=== PATIENT | female | born 1945 | race Caucasian/White ===

== ENCOUNTER 2016-10-27 20:49 | Observation (INO) | payer MEDICARE, BC ==
[~2016-10-27] VITALS: Ht 162.6 cm; Wt 108.8 kg
--- NOTE | ~2016-10-27 | CO ---
ADMIT: 10/29/2016 RM/LOC: 530 [facility] MR#: [id number] [address] [address] SERINA MARQUEZ Gabriella [address] [place] [address] Consultation SEX: F AGE: 70 : 1945 CORRECTED: 11/03/2016 0758 NJV DATE OF CONSULTATION: 10/30/2016 ATTENDING PHYSICIAN: Lilian Grant MD CONSULTING PHYSICIAN: Drew Tariq MD ADDENDUM: Serina was seen in consultation independently. I have reviewed the chart, reviewed Randell Castrejon's note, and examined Serina. I am in agreement with his assessment, plan, and documentation. I have recommended proceeding with esophagogastroduodenoscopy. She accepts the risks with that and wishes to proceed. Drew Tariq MD/ lizzl JOB #: [id number] CC: Lilian Grant MD, Attending Physician Lilian Grant MD, Family Physician CORRECTED: 11/03/2016 0758 NJV
--- NOTE | 2016-10-28 01:07 | ER ---
ADMIT: 10/27/2016 RM/LOC: ER [facility] MR#: [id number] [address] [place], [place] [address] HEATHER MARQUEZ [address] [place] [address] Emergency Room Report SEX: F AGE: 70 : 1945 DATE: 10/27/2016 HISTORY OF PRESENT ILLNESS: Patient is a 70-year-old female with history of pancreatitis, spinal stenosis, colon cancer, status post hemicolectomy, left nephrectomy for renal cell carcinoma. States at noon, she developed epigastric pain radiating to back, consistent with her pancreatitis, nausea, but no vomiting. Loose stools, but no hematochezia, fevers, chills or urinary symptoms. PAST MEDICAL HISTORY: ILLNESSES: Type 2 diabetes, hypertension, pancreatitis, hyperlipidemia, colon cancer, gout, spinal stenosis, obstructive sleep apnea, renal cell carcinoma. OPERATIONS: Left nephrectomy for renal cell carcinoma, carpal tunnel release, partial colectomy for colon cancer, cholecystectomy. ALLERGIES: NONE. MEDICATIONS: Please see nurse's MAR. SOCIAL HISTORY: , retired, nonsmoker, nondrinker. No illicit drugs. FAMILY HISTORY: Negative per chart review. REVIEW OF SYSTEMS: A 12-point review of systems negative for all other systems, illnesses, or operations except as outlined above. PHYSICAL EXAMINATION: VITAL SIGNS: Temp 99.5, pulse 80, respirations 18, BP 150/70, SaO2 of 98% on room air. Weight 110 kilos. GENERAL: Anxious, non-diaphoretic. No evidence of jaundice, icterus, or diaphoresis. HEENT: Normocephalic. No evidence of epistaxis, rhinorrhea, or otorrhea. NECK: Supple without lymphadenopathy or thyromegaly. CHEST: Clear. Breath sounds equal. HEART: Regular rate and rhythm without murmur, gallop, or edema. ABDOMEN: Diffusely tender, particularly in the mid epigastrium without mass or megaly. Bowel sounds hypoactive. BACK: No CVA tenderness. Nontender dorsal spine to percussion. EXTREMITIES: No evidence of Homans sign, synovitis, or dermatitis. Homans sign negative. NEURO: EOMI. PERRLA. No evidence of drift, dysarthria, or ataxia. Gait not assessed. MENTAL STATUS: Alert, oriented, and cooperative without delusions, hallucinations, or abnormal thought content. MEDICAL DECISION MAKING: The patient received liter of fluid, Zofran, Dilaudid, Protonix with improvement of pain. CT abdomen and pelvis shows left nephrectomy, scattered air-fluid levels consistent with enteritis. Lactic 1.4. Normal CBC, procalcitonin 0.05. Potassium 3.2, creatinine 1.2, glucose 121, CRP 1.04, lipase 174, troponin less than 0.015. INR less than 1.0. BNP ADMIT: 10/27/2016 RM/LOC: ER [facility] MR#: [id number] [address] [place] [id number] [place] [address] Emergency Room Report SEX: F AGE: 70 : 1945 175. Urinalysis negative. EKG sinus rhythm without ST-T or Q-wave change. Discussed findings with Dr. Harding, who agreed to admit and gave orders to nursing staff. DIAGNOSIS: Abdominal pain, likely enteritis, but due to multiple comorbidities and social situation, we will admit observation status. RECOMMENDATION: Admit observation tele for Dr. Grant. ADMISSION/DISCHARGE CONDITION: Stable. Patient is a full code. Haim Brown MD/ damian JOB #: [id number] CC: Haim Brown MD, Attending Physician Lilian Grant MD, Family Physician Lilian Grant MD
--- NOTE | 2016-10-30 05:52 | HP ---
ADMIT: 10/28/2016 RM/LOC: 530 [facility] MR#: [id number] 26[address] [facility] [address] [place], [place] [address] HEATHER MARQUEZ [address] [place], [place] [address] History and Physical SEX: F AGE: 70 : 1945 DATE OF SERVICE: CHIEF COMPLAINT: Nausea, vomiting, and diarrhea. HISTORY OF PRESENT ILLNESS: Ms. Marquez is a 70-year-old female. She has a past medical history significant for history of colon cancer, status post hemicolectomy; history of renal cell carcinoma, status post left nephrectomy; history of pancreatitis; history of obstructive sleep apnea; hypertension; depression; diabetes as well as diastolic CHF who presented to the ER with complaints of nausea, vomiting, and diarrhea. Patient reports her symptoms started yesterday when she reports she had a salad for lunch and afterwards began having nausea, vomiting, and diarrhea. Reports she had mid abdominal pain that radiated through to her back and she was concerned that maybe it was pancreatitis. She reports that then she came into the ER, they did a full evaluation, did a CT scan and a lipase and found that she did not in fact have pancreatitis, it looked more like a gastroenteritis. However, patient was unable to keep the liquids down and was hypotensive and felt warranted admission for further evaluation and treatment. She reports otherwise she is not aware of any sick contacts. She notes that she did not really know if she had fevers or chills, but she did have kind of sweats. PAST MEDICAL HISTORY: Significant for: 1. History of colon cancer, status post hemicolectomy with negative nodes, recurrence at 1 year follow up, status post repeat hemicolectomy 07/2010. 2. Hyperlipidemia. 3. Osteopenia. 4. Status post carpal tunnel release in the right. 5. Renal cell carcinoma, status post left nephrectomy. 6. Diabetes mellitus. 7. Depression. 8. Hypertension. 9. Obstructive sleep apnea with a CPAP at 10. 10.History of pancreatitis. 11.History of vitamin D deficiency. 12.History of lap cholecystectomy. 13.She has history of lumbar stenosis status post L4-L5 laminectomy. ALLERGIES: LISTED NO KNOWN MEDICAL ALLERGIES. MEDICATIONS: Currently are: 1. Norvasc 5 mg p.o. daily. 2. Cymbalta 60 mg p.o. daily. 3. Benazepril 10 mg p.o. daily. 4. Tradjenta 5 mg p.o. daily. 5. Hydrochlorothiazide 25 mg p.o. daily. 6. Lasix 40 mg p.o. daily. 7. Potassium 30 mEq p.o. daily. 8. Vitamin D 2000 units daily. 9. Trulicity on Saturdays. ADMIT: 10/28/2016 RM/LOC: 530 [facility] MR#: [id number] [address] [id number] HEATHER MARQUEZ [address] [place] [address] History and Physical SEX: F AGE: 70 : 1945 SOCIAL HISTORY: She quit smoking in March 2010. She denies any alcohol use. She is . FAMILY HISTORY: Father of unknown causes. Mother of a CVA. She has a brother with Paget's and melanoma and another sister with lung cancer. Another sister with coronary disease. REVIEW OF SYSTEMS: Obtained, was otherwise essentially negative. PHYSICAL EXAMINATION: GENERAL: She is alert and oriented. She is in no apparent distress. HEENT: Pupils are equal, round, reactive. Oropharynx, dry mucous membranes. NECK: Supple. HEART: Distant but normal rate with a regular rhythm. LUNGS: Have diminished breath sounds secondary to body habitus. ABDOMEN: Soft. She does have pain in her mid epigastrium to palpation, but there is no guarding or rebound. Her bowel sounds are completely normal. She seems a little distended. EXTREMITIES: Have no evidence of edema. SKIN: Warm and dry. NEUROLOGIC: She moves her upper and lower extremities. ASSESSMENT/PLAN: 1. Nausea, vomiting, and diarrhea. 2. Abdominal pain. At this time, I suspect it is more of a viral gastroenteritis. We will go ahead and continue with IV hydration and plan to give her pain medicine, nausea medicine, and continue to give her liquids, advance diet as tolerated. 3. History of hypertension. Hold her medications at this time as her blood pressure is low. 4. Obstructive sleep apnea. Continue her CPAP as at home. 5. Depression. Continue her Cymbalta. 6. Diabetes mellitus. We will hold her Tradjenta and Trulicity at this time. Otherwise we will follow along, we will give her an IV H2 diane to reduce the acid. I spent 35 minutes in the admission and evaluation of this patient. Lilian Grant MD/ damian JOB #: [id number] CC: Lilian Grant MD, Attending Physician Lilian Grant MD, Family Physician
[2016-11-01] MEDS ORDERED: NORVASC5 MG PO (16:55)
[2016-11-01] MEDS ORDERED: LOTENSIN10 MG PO (16:55)
[2016-11-01] MEDS ORDERED: HYDROCHLOROTHIA25 MG PO (16:56)
[2016-11-01] MEDS ORDERED: TRADJENTA5 MG PO (16:56)
[2016-11-01] MEDS ORDERED: CYMBALTA DPS60 MG PO (16:56)
[2016-11-01] MEDS ORDERED: LASIX DPS20 MG PO (16:56)
[2016-11-01] MEDS ORDERED: VITAMIN D-32000 UNI1 PO (16:57)
[2016-11-01] MEDS ORDERED: MICRO-K DPS10 MEQ PO (16:57)
[2016-11-01] MEDS ORDERED: TRULICITY0.75 MG/0. SQ (16:58)
[2016-11-01] MEDS ORDERED: OMEPRAZOLE MAGN20 MG PO (16:58)
--- NOTE | 2016-11-03 08:13 | OR ---
ADMIT: 10/29/2016 RM/LOC: 530 [facility] MR#: [id number] 26[address] [facility] [address] [place], [place] [address] HEATHER MARQUEZ [address] [place] [address] Operative/Delivery Room Report SEX: F AGE: 70 : 1945 SURGERY DATE: 10/30/2016 SURGEON: Drew Traiq MD PREOPERATIVE DIAGNOSIS: Nausea and vomiting. POSTOPERATIVE DIAGNOSIS: Mild gastritis. PROCEDURE: Esophagogastroduodenoscopy with biopsy. ANESTHESIA: IV general. DESCRIPTION OF PROCEDURE: The patient was taken to the endoscopy suite and placed left side down on her hospital cart. A bite-block was placed and IV sedation was established. The upper endoscope was advanced through the oropharynx into the esophagus without difficulty. The scope was pushed under visualization of the stomach. Air was used to insufflate the stomach. The pylorus was intubated. The first and second portions of the duodenum were examined and appeared normal. The scope was withdrawn to the stomach. In the antrum, there was mild hyperemia without ulcer. Biopsies were obtained. On retroflexion of the scope, the gastric body, fundus, and cardia appeared normal. The scope was withdrawn to the gastroesophageal junction. The Z-line was normal as was the remainder of the esophageal mucosa upon withdrawal of the scope. The patient tolerated the procedure well and transferred to the recovery area in stable condition. Drew Tariq MD/ damian JOB #: [id number] CC: Lilian Grant MD, Attending Physician Lilian Grant MD, Family Physician
--- NOTE | 2016-11-05 13:22 | DS ---
ADMIT: 10/29/2016 RM/LOC: 530 [facility] MR#: [id number] 2620 [facility] [address] [place] [phone] HEATHER MARQUEZ [address] [place] [address] Discharge Summary SEX: F AGE: 70 : 1945 ADMISSION DATE: 10/29/2016 DISCHARGE DATE: 10/31/2016 DISCHARGE DIAGNOSES: 1. Nausea. 2. Vomiting. 3. Diarrhea. 4. Abdominal pain. 5. Mild gastritis. 6. Elevated LFTs (liver function tests). 7. History of COPD (chronic obstructive pulmonary disease). 8. History of CHF (congestive heart failure). 9. History of colon cancer. 10.History of hyperlipidemia. 11.History of renal cell carcinoma. 12.Diabetes mellitus. 13.Depression. 14.Hypertension. 15.Obstructive sleep apnea. 16.History of pancreatitis. HOSPITAL COURSE: The patient was admitted. She had pretty severe abdominal pain, nausea, vomiting, thought it was viral. Put her on some IV fluids. Her symptoms kind of persisted. She got a little volume overloaded and needed some IV Lasix. I went ahead and consulted Surgery. They did do an EGD, found some mild gastritis, otherwise her symptoms gradually improved. The plan was for her to be discharged home. She was discharged home on all of her home medications, but in addition she was given Prilosec 40 mg p.o. daily. She was told to follow up in 2 weeks and repeat her LFTs at that time, as they were elevated at the time of discharge. Lilian Grant MD/ delores JOB #: [id number] CC: Lilian Grant MD, Attending Physician Lilian Grant MD, Family Physician
--- NOTE | 2016-11-06 10:08 | CO ---
ADMIT: 10/29/2016 RM/LOC: 530 [facility] MR#: [id number] 26[address] [facility] [address] [place] [phone] SERINA MARQUEZ Gabriella [address] [place] [address] Consultation SEX: F AGE: 70 : 1945 CORRECTED: 11/03/2016 1100 DJS DATE OF CONSULTATION: 10/30/2016 ATTENDING PHYSICIAN: Lilian Grant MD CONSULTING PHYSICIAN: Drew Tariq MD REASON FOR CONSULTATION: Persistent nausea and vomiting. HISTORY OF PRESENT ILLNESS: Serina is a very pleasant 70-year-old female, who started noticing some nausea with emesis on Thursday, so approximately 4 days ago. Since then, it has been getting progressively worse. On Thursday, she did have a bout of diarrhea, but that has now resolved. She also endorses some left upper quadrant abdominal pain that has been getting worse in nature. She denies any hematemesis, dark or bloody stools or any more diarrhea or constipation. She had, had a pancreatitis attack several years back and she felt like this is what it was, so she sought medical attention in our ER, which pancreatic enzymes came back as being normal. PAST MEDICAL HISTORY: Significant for type 2 diabetes, hyperlipidemia, osteopenia, renal cell carcinoma, depression, obstructive sleep apnea, history of pancreatitis, vitamin D deficiency, lumbar stenosis. PAST SURGICAL HISTORY: 1. Status post lap arcelia in 07/2013. 2. Left nephrectomy. 3. Bowel resection x2. 4. Laminectomy. 5. Carpal tunnel release. ALLERGIES: NO KNOWN DRUG ALLERGIES. MEDICATIONS: Well documented in chart. FAMILY HISTORY: Noncontributory. SOCIAL HISTORY: The patient denies any alcohol, tobacco, or illicit drug use. REVIEW OF SYSTEMS: CONSTITUTIONAL: The patient has had some on and off night sweats, but denies any fevers or chills. The rest of a comprehensive 10-point review of systems was performed and all other systems are negative. PHYSICAL EXAMINATION: GENERAL: The patient is in no acute distress. She is alert and oriented. HEENT: Head is normocephalic and atraumatic. EOMs are intact. Conjunctivae free of icterus, erythema, or pallor. Pinnae, free of deformities. Nose, midline. No tracheal deviation. ADMIT: 10/29/2016 RM/LOC: 530 [facility] MR#: [id number] [address] [address] SERINA MARQUEZ [address] [place] [address] Consultation SEX: F AGE: 70 : 1945 NECK: Supple. SKIN: Negative for jaundice, clubbing, edema, pallor, or cyanosis. LUNGS: Normal respiratory effort. HEART: Distal pulses intact. Regular rate and rhythm. ABDOMEN: Soft, nondistended, tender in left upper quadrant. NEURO: Grossly intact. ASSESSMENT: Persistent nausea and vomiting. PLAN: The plan is to have the patient undergo EGD performed by Dr. Tariq today. I discussed the risks, alternatives, benefits, and complications of endoscopy with the patient to which she is in agreement of this plan, had all her questions answered and would like to proceed. She is on the surgery schedule, so we will get her consented and plan for this afternoon. Thank for the consultation. FREDDIE Warren / Drew Tariq MD / damian JOB #: [id number] CC: Lilian Grant MD, Attending Physician Lilian Grant MD, Family Physician CORRECTED: 11/03/2016 1100 DJS
== END 2016-10-31 11:05 | disposition home or self-care (01) ==
LOC: ER 20:49 → 5MS 10-28 00:18
PROVIDERS: ADMIT Internal Medicine
PROC: 0DB68ZX Excision of Stomach, Via Natural or Artificial Opening Endoscopic, Diagnostic (ICD-10-PCS; principal; 2016-10-30)
DX: K29.50 Unspecified chronic gastritis without bleeding (principal); I11.0 Hypertensive heart disease with heart failure; I50.30 Unspecified diastolic (congestive) heart failure; E11.9 Type 2 diabetes mellitus without complications; G47.33 Obstructive sleep apnea (adult) (pediatric); M48.06 Spinal stenosis, lumbar region; E55.9 Vitamin D deficiency, unspecified; F32.9 Major depressive disorder, single episode, unspecified; M85.80 Other specified disorders of bone density and structure, unspecified site; E78.5 Hyperlipidemia, unspecified; R79.89 Other specified abnormal findings of blood chemistry; Z85.038 Personal history of other malignant neoplasm of large intestine; Z85.528 Personal history of other malignant neoplasm of kidney; Z90.5 Acquired absence of kidney; Z87.891 Personal history of nicotine dependence; Z90.49 Acquired absence of other specified parts of digestive tract